=== PATIENT | male | born 1940 | race Caucasian/White ===

== ENCOUNTER 2019-05-11 21:05 | Emergency (ER) | payer MEDICARE, OTHER ==
--- NOTE | 2019-05-11 21:16 | ER Report ---
History and Physical Time Seen By MD: 21:15 HPI/ROS CHIEF COMPLAINT: Syncope HISTORY OF PRESENT ILLNESS: 79-year-old male presents ambulatory to the ER complaining of syncopal episode earlier. He was stumbling and unsteady and fainted people caught him and lowered him to the ground. He did not sustain any injuries. Patient's been traveling for 2 days from [place] to come to [facility] for a wedding. He recently was on a prednisone taper 60 mg for one week 40 mg for 1 week and then 20 g for one week which he finished on Wednesday. Patient has history of arthritis. Patient denies headache or blurry vision. Patient describes generalized weakness. He's had no rhinitis, cough or sore throat. He's had no chest pain or shortness of breath. He's had no leg swelling. REVIEW OF SYSTEMS: Respiratory: No cough, no dyspnea. Cardiovascular: No chest pain, no palpitations. Gastrointestinal: No vomiting, no abdominal pain. Musculoskeletal: No back pain. Allergies: Coded Allergies: No Known Drug Allergies (Unverified , 05/11/19) Home Meds Active Scripts Prednisone 10 Mg Tab (PREDNISONE 10 MG TAB) 10 Mg Tablet, 10 MG PO QDAY for adrenal insufficiency, #10 4 tabs daily for 2 days 2 tabs daily for today 1 tab daily for 4 days Prov:JHONY ALEXANDER Teresa REYES 05/11/19 Reviewed Nurses Notes: Yes Old Medical Records Reviewed: Yes Constitutional Vital Sign - Last 24 Hours 05/11/19 05/11/19 05/11/19 21:19 21:27 21:28 Temp 98.5 Pulse 87 Resp 14 B/P (MAP) 163/83 163/83 (109) 108/84 (92) 120/72 (88) Pulse Ox 91 O2 Delivery Room Air O2 Flow Rate 2.0 Intake and Output 05/11/19 05/11/19 05/12/19 15:01 23:01 07:01 Intake Total 1000 ml Balance 1000 ml Physical Exam Vital signs stable, afebrile, pulse ox normal General Appearance: The patient is alert, has no immediate need for airway protection and no current signs of toxicity. Slightly pale appearing, skin warm and dry HEENT: Pupils equal and round no injection. TMs normal, oropharynx without redness or exudate Respiratory: Chest is non tender, lungs are clear to auscultation. Cardiac: regular rate and rhythm Gastrointestinal: Abdomen is soft and non tender, no masses, bowel sounds normal. Musculoskeletal: Neck: Neck is supple and non tender. No lymphadenopathy, no JVD Extremities have full range of motion and are non tender. No edema, no calf tenderness Skin: No rashes or lesions. Alert and oriented 3, cranial nerves II through XII intact motor 5/5 all groups, sensory intact to light touch 4 DIFFERENTIAL DIAGNOSIS: After history and physical exam differential diagnosis was considered for syncope including but not limited to vasovagal syncope, arrhythmia, adrenal insufficiency, dehydration, and blood loss. Medical Decision Making Data Points Result Diagram: 05/11/19212805/11/192128 Laboratory Hematology Test 05/11/19 21:29 Red Blood Count 4.78 M/uL (4.00-5.60) Mean Corpuscular Volume 90.4 fL (80.0-96.0) Mean Corpuscular Hemoglobin 30.7 pg (26.0-33.0) Mean Corpuscular Hemoglobin Concent 34.0 g/dL (32.0-36.0) Red Cell Distribution Width 14.1 % (11.5-14.5) Mean Platelet Volume 6.8 fL (7.2-11.1) Neutrophils (%) (Auto) 80.9 % (39.4-72.5) Lymphocytes (%) (Auto) 10.4 % (17.6-49.6) Monocytes (%) (Auto) 6.3 % (4.1-12.4) Eosinophils (%) (Auto) 2.0 % (0.4-6.7) Basophils (%) (Auto) 0.4 % (0.3-1.4) Nucleated RBC Relative Count (auto) 0.0 /100WBC Neutrophils # (Auto) 10.7 K/uL (2.0-7.4) Lymphocytes # (Auto) 1.4 K/uL (1.3-3.6) Monocytes # (Auto) 0.8 K/uL (0.3-1.0) Eosinophils # (Auto) 0.3 K/uL (0.0-0.5) Basophils # (Auto) 0.0 K/uL (0.0-0.1) Nucleated RBC Absolute Count (auto) 0.00 K/uL D-Dimer Quantitative (PE/DVT) 0.37 ug/ml (0-0.50) Sodium Level 134 mmol/L (137-145) Potassium Level 4.0 mmol/L (3.5-5.0) Chloride Level 92 mmol/L (98-107) Carbon Dioxide Level 31 mmol/L (22-30) Blood Urea Nitrogen 16 mg/dl (9-21) Creatinine 0.90 mg/dl (0.66-1.25) Glomerular Filtration Rate Calc > 60.0 Random Glucose 124 mg/dl (75-110) Calcium Level 9.5 mg/dl (8.4-10.2) Total Bilirubin 0.4 mg/dl (0.2-1.3) Aspartate Amino Transf (AST/SGOT) 26 U/L (0-35) Alanine Aminotransferase (ALT/SGPT) 48 U/L (0-56) Alkaline Phosphatase 102 U/L (0-126) Troponin I < 0.012 ng/ml B-Type Natriuretic Peptide 10 pg/ml (0-100) Total Protein 7.7 g/dl (6.3-8.2) Albumin 4.4 g/dl (3.5-5.0) Chemistry Test 05/11/19 21:29 White Blood Count 13.2 k/uL (4.5-11.0) Red Blood Count 4.78 M/uL (4.00-5.60) Hemoglobin 14.7 g/dL (14.0-18.0) Hematocrit 43.2 % (42.0-52.0) Mean Corpuscular Volume 90.4 fL (80.0-96.0) Mean Corpuscular Hemoglobin 30.7 pg (26.0-33.0) Mean Corpuscular Hemoglobin Concent 34.0 g/dL (32.0-36.0) Red Cell Distribution Width 14.1 % (11.5-14.5) Platelet Count 287 K/uL (150-450) Mean Platelet Volume 6.8 fL (7.2-11.1) Neutrophils (%) (Auto) 80.9 % (39.4-72.5) Lymphocytes (%) (Auto) 10.4 % (17.6-49.6) Monocytes (%) (Auto) 6.3 % (4.1-12.4) Eosinophils (%) (Auto) 2.0 % (0.4-6.7) Basophils (%) (Auto) 0.4 % (0.3-1.4) Nucleated RBC Relative Count (auto) 0.0 /100WBC Neutrophils # (Auto) 10.7 K/uL (2.0-7.4) Lymphocytes # (Auto) 1.4 K/uL (1.3-3.6) Monocytes # (Auto) 0.8 K/uL (0.3-1.0) Eosinophils # (Auto) 0.3 K/uL (0.0-0.5) Basophils # (Auto) 0.0 K/uL (0.0-0.1) Nucleated RBC Absolute Count (auto) 0.00 K/uL D-Dimer Quantitative (PE/DVT) 0.37 ug/ml (0-0.50) Glomerular Filtration Rate Calc > 60.0 Calcium Level 9.5 mg/dl (8.4-10.2) Total Bilirubin 0.4 mg/dl (0.2-1.3) Aspartate Amino Transf (AST/SGOT) 26 U/L (0-35) Alanine Aminotransferase (ALT/SGPT) 48 U/L (0-56) Alkaline Phosphatase 102 U/L (0-126) Troponin I < 0.012 ng/ml B-Type Natriuretic Peptide 10 pg/ml (0-100) Total Protein 7.7 g/dl (6.3-8.2) Albumin 4.4 g/dl (3.5-5.0) Coagulation Test 05/11/19 21:29 D-Dimer Quantitative (PE/DVT) 0.37 ug/ml EKG/Imaging EKG Interpretation 12 lead EK Rhythm: normal sinus rhythm with marked sinus arrhythmia [place]: normal QRS: normal ST segments: normal, no evidence of ischemia or dysrhythmia, no old EKGs for comparison Imaging X-ray: Single view chest x-ray was obtained. I viewed the images myself on the PACS system. My interpretation of the images is: No infiltrate, no effusion, normal mediastinum. The radiologist interpretation had no clinically significant variation from this interpretation. Results: CT scan of the head without contrast was obtained. The results of the study are no acute findings. The study was read by the radiologist. I viewed the images myself on the PACS system. ED Course/Re-evaluation Clinical Indication for ER IV: Hydration, IV Access ED Course Patient was minute to an examination room. H&P was done. The differential diagnoses was considered. Patient with a syncopal episode. An extensive diagnostic evaluation including a head CT and diagnostic lab work was unremarkable. Patient's history is significant for just discontinuing prednisone 20 motor grams per day. After an extended taper of 60 for one week, 40 for one week and then 20 for one week for his arthritis. I suspect patient is having adrenal insufficiency. He was given 20 motor grams of prednisone by mouth here. He was hydrated with 1 L of normal saline. He feels much better. He'll be discharged home on prednisone 10 mg per day for one week. He is advised to follow-up with his primary care doctor back in [place] upon returning home. Decision to Disposition Date: May 11, 2019 Decision to Disposition Time: 22:29 Depart Departure Latest Vital Signs Vital Signs Date Time Temp Pulse Resp B/P (MAP) Pulse Ox O2 Delivery O2 Flow Rate FiO2 05/11/19 21:28 2.0 05/11/19 21:27 163/83 (109) 108/84 (92) 120/72 (88) 05/11/19 21:19 98.5 87 14 91 Room Air Impression: Primary Impression: Syncope Additional Impression: Adrenal insufficiency Condition: Improved Disposition: HOME OR SELF-CARE New Scripts Prednisone 10 Mg Tab (PREDNISONE 10 MG TAB) 10 Mg Tablet 10 MG PO QDAY for adrenal insufficiency, #10 4 tabs daily for 2 days 2 tabs daily for today 1 tab daily for 4 days Prov: JHONY ALEXANDER DO 05/11/19 Patient Instructions: Secondary Adrenal Insufficiency (ED), Syncope (ED) Additional Instructions: Follow-up with your primary care doctor upon returning home Return to the ER for any worsening Problem Qualifiers Primary Impression: Syncope Syncope type: unspecified Qualified Codes: R55 - Syncope and collapse JHONY ALEXANDER DO May 11, 2019 21:16
[2019-05-11] MEDS ORDERED: NS(*) 0.9% 1000 ML BAG 1,000 ML IV ONE (21:23)
[2019-05-11 21:27] VITALS: BP 120/72
[2019-05-11 21:45] LABS: PLATELET COUNT, AUTOMATED 287 K/uL (150-450)
--- NOTE | 2019-05-11 22:17 | RADIOLOGY IMAGING REPORT ---
FACILITY: [facility] [place] PATIENT NAME: Timothy Piña : 1940 MR: [id number] V: [id number] EXAM DATE: ORDERING PHYSICIAN: JHONY ALEXANDER TECHNOLOGIST: [facility] Patient: Timothy Piña : 1940 Visit/Account:[id number] Date of Sevice: 05/11/2019 CT BRAIN WITHOUT CONTRAST CLINICAL INDICATION: Syncope and altered mental status COMPARISON: No priors TECHNIQUE: Contiguous axial CT images of the brain were obtained without IV contrast. Sagittal and co cash reformatted images were also performed. One of the following dose optimization techniques was utilized in the performance of this exam: Autom ated exposure control; adjustment of the mA and/or kV according to the patient's size; or use of an i terative reconstruction technique. Specific details can be referenced in the facility's radiology C T exam operational policy. RESULT: BRAIN: Prominence of the ventricles and sulci is consistent with atrophy. There are areas of low atte nuation in the periventricular and subcortical white matter which are nonspecific, but suggestive of chronic microvascular ischemic change. The brainstem and cerebellum appear normal. The basilar ciste rns appear normal. There is no mass, acute infarct, hemorrhage or shift of midline. Vascular atherosc lerotic calcifications are present. PARANASAL SINUSES & MASTOIDS: Well air-fluid level within the right maxillary sinus. Small polyp vers us mucus retention cyst within the left maxillary sinus. 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 Small polyp versus mucus retention cyst within the inferior aspect of the sphenoid sinus. SKULL BASE & CRANIUM: Visualized osseous structures are intact. SOFT TISSUES: No soft tissue swelling or hematoma is appreciated. IMPRESSION: 1. No acute findings. 2. Findings of advanced chronological age. 3. Moderate paranasal sinus disease. Report Dictated By: Jhon Jewell MD at 05/11/2019 10:10 PM Report E-Signed By: Jhon Jewell MD at 05/11/2019 10:12 PM WSN:[id number]
--- NOTE | 2019-05-11 22:18 | RADIOLOGY IMAGING REPORT ---
FACILITY: [facility] PATIENT NAME: Timothy Piña : 1940 MR: [id number] V: [id number] EXAM DATE: ORDERING PHYSICIAN: JHONY ALEXANDER TECHNOLOGIST: Location: [facility] Patient: Timothy Piña : 1940 Visit/Account:[id number] Date of Sevice: 05/11/2019 CHEST SINGLE AP Indication: syncope Comparison: None available Findings: Heart size within normal limits. There is no focal infiltrate or lobar consolidation. Mild scarring and/or atelectasis within the l eft lung base. Hyperexpansion the lungs with mild chronic interstitial changes. No pneumothorax or pleural effusion. IMPRESSION: 1. No acute cardiopulmonary process. Report Dictated By: Jhon Jewell MD at 05/11/2019 10:12 PM Report E-Signed By: Jhon Jewell MD at 05/11/2019 10:13 PM WSN:[id number]
[2019-05-11] MEDS ORDERED: predniSONE 20 MG TAB PO ONE (22:25)
[2019-05-11] MEDS ORDERED: PRED-1 PO (22:32)
--- NOTE | 2019-05-11 23:47 | EKG ---
FACILITY: [facility] PATIENT NAME: NAYA HUNTLEY : [id number] MR: [id number] V: [id number] EXAM DATE: ORDERING PHYSICIAN: JHONY ALEXANDER TECHNOLOGIST: MORGAN Eagle Reason : syncope Blood Pressure : / mmHG Vent. Rate : 086 BPM Atrial Rate : 086 BPM P-R Int : 130 ms QRS Dur : 074 ms QT Int : 332 ms P-R-T Axes : 075 073 075 degrees QTc Int : 397 ms Sinus rhythm with frequent PACs Probable biatrial enlargement Nonspecific ST findings No previous ECGs available Confirmed by GUEVARA ARAGON ([id number] on 05/12/2019 6:49:47 AM Referred By: Confirmed By:GUEVARA ARAGON
== END 2019-05-11 22:36 | disposition home or self-care (01) ==
LOC: ER 21:40
DX: E27.40 Unspecified adrenocortical insufficiency (principal); R55 Syncope and collapse
CPT/HCPCS: 70450; 71045; 83880; 84484; 85025; 85379; 93005; 96360; 99284; J7030; J7512; 82040; 82247; 82310; 82374; 82435; 82565; 82947; 84075; 84132; 84155; 84295; 84450; 84460; 84520